=== PATIENT | male | born 1995 | race Caucasian/White ===

== ENCOUNTER 2017-07-17 12:34 | Inpatient (IN) | payer OTHER ==
[2017-07-17 13:22] LABS: ADD MAN DIFF? NO
[2017-07-17 13:24] LABS: BASOPHIL # 0.1 10^3/ul (0.0-0.1); BASOPHILS % 0.4 % (0.0-2.0); EOSINOPHILS % 0.2 % (0.0-7.0); HEMATOCRIT 43.8 % (42.0-52.0); HEMOGLOBIN 15.9 g/dl (14.0-18.0); LYMPHOCYTES # 2.3 10^3/ul (0.8-2.9); LYMPHOCYTES % 20.1 % (18.0-55.0); MEAN CORPUSCULAR HEMOGLOBIN 28.1 pg (29.0-33.0); MEAN CORPUSCULAR HGB CONC 36.3 g/dl (32.0-37.0); MEAN CORPUSCULAR VOLUME 77.5 fl (72.0-104.0); MEAN PLATELET VOLUME 10.9 fl (7.4-10.4); MONOCYTE # 0.5 10^3/ul (0.3-0.9); MONOCYTES % 4.6 % (0.0-13.0); NEUTROPHIL # 8.6 10^3/ul (1.6-7.5); NEUTROPHILS % 74.4 % (30.0-74.0); PLATELET COUNT 312 10^3/UL (140-415); RED BLOOD COUNT 5.65 10^6/ul (4.70-6.10); RED CELL DISTRIBUTION WIDTH 11.3 % (11.5-14.5)
[2017-07-17 13:24] LABS: WHITE BLOOD COUNT 11.5 10^3/ul (4.8-10.8)
[2017-07-17] MEDS: SOD CHLORIDE 0.9% 1,000 ML IV ×3 (13:27→14:14)
[2017-07-17] MEDS: ONDANSETRON 4 MG INJ IV (13:27)
[2017-07-17 13:41] LABS: ALANINE AMINOTRANSFERASE 46 IU/L (13-69); ALBUMIN 4.9 g/dl (3.3-4.9); ALBUMIN/GLOBULIN RATIO 1.44; ALKALINE PHOSPHATASE 158 IU/L (42-121); ANION GAP 32 (8-16); ASPARTATE AMINO TRANSFERASE 20 IU/L (15-46); BILIRUBIN,INDIRECT 0.4 mg/dl (0-1.1); BILIRUBIN,TOTAL 0.4 mg/dl (0.2-1.3); BLOOD UREA NITROGEN 14 mg/dl (7-20); CALCIUM 9.6 mg/dl (8.4-10.2); CARBON DIOXIDE 14 mmol/L (21-31); CHLORIDE 95 mmol/L (97-110); CREATININE 0.99 mg/dl (0.61-1.24); LIPASE 59 U/L (23-300); POTASSIUM 4.9 mmol/L (3.5-5.1); SODIUM 136 mmol/L (135-144); TOTAL PROTEIN 8.3 g/dl (6.1-8.1)
[2017-07-17 13:49] LABS: ADD UMIC NO; GLUCOSE 714 mg/dl (70-220); UR ASCORBIC ACID NEGATIVE (NEGATIVE); UR BILIRUBIN (Dip) NEGATIVE (NEGATIVE); UR BLOOD (Dip) NEGATIVE (NEGATIVE); UR CLARITY CLEAR (CLEAR); UR COLOR COLORLESS (YELLOW); UR GLUCOSE (Dip) 3+ mg/dL (NEGATIVE); UR KETONES (Dip) 2+ mg/dL (NEGATIVE); UR LEUKOCYTE ESTERASE (Dip) NEGATIVE Leu/ul (NEGATIVE); UR NITRITE (Dip) NEGATIVE (NEGATIVE); UR SPECIFIC GRAVITY (Dip) 1.028 (1.003-1.030); UR TOTAL PROTEIN (Dip) NEGATIVE (NEGATIVE); UR UROBILINOGEN (Dip) NEGATIVE (NEGATIVE)
[2017-07-17] MEDS ORDERED: GLUCOSE GEL 15 GRAM TUBE BUCCAL (14:00)
[2017-07-17] MEDS ORDERED: GLUCOSE GEL 15 GRAM TUBE PO ×2 (14:00)
[2017-07-17] MEDS ORDERED: GLUCAGON 1 MG INJ IM (14:00)
[2017-07-17] MEDS ORDERED: DEXTROSE 50% 50 ML SYRINGE IV ×4 (14:00→14:30)
[2017-07-17] MEDS ORDERED: SOD CHLORIDE 0.9% 1,000 ML IV (14:10)
[2017-07-17 14:17] LABS: MAGNESIUM 1.7 mg/dl (1.7-2.5)
[2017-07-17] MEDS: ACCU-CHEK XX ×10 (14:30→23:30)
[2017-07-17] MEDS ORDERED: POTASSIUM CHLORIDE 10 MEQ in SOD CHLORIDE 0.45% 1,000 ML IV (14:30)
[2017-07-17] MEDS ORDERED: POTASSIUM CHLORIDE 30 MEQ in SOD CHLORIDE 0.45% 1,000 ML IV (14:33)
[2017-07-17] MEDS: INSULIN HUMAN REGULAR 100 UNIT in SOD CHLORIDE 0.9% 99 ML IV (14:50)
[2017-07-17 15:28] LABS: ANION GAP 27 (8-16); BLOOD UREA NITROGEN 13 mg/dl (7-20); CALCIUM 8.6 mg/dl (8.4-10.2); CARBON DIOXIDE 15 mmol/L (21-31); CHLORIDE 102 mmol/L (97-110); CREATININE 0.82 mg/dl (0.61-1.24); POTASSIUM 4.5 mmol/L (3.5-5.1); SODIUM 139 mmol/L (135-144)
[2017-07-17 15:31] LABS: GLUCOSE 552 mg/dl (70-220)
[2017-07-17 15:33] LABS: HEMOGLOBIN A1C 8.1 % (0-5.9)
[2017-07-17 15:34] LABS: MODE ROOM AIR; MetHgb Venous 0.4 %; Sample Type Blood venous; Site VENOUS LINE; Venous COHb 0.4 %; Venous Fraction OxyHgb 72.9 %; Venous Oxygen Sat 73.5 mmHG (55.0-75.0); Venous Total Hemglobin 15.3 g/dl
[2017-07-17] MEDS ORDERED: ONDANSETRON 4 MG INJ IV (16:00)
[2017-07-17] MEDS ORDERED: MAGNESIUM HYDROXIDE 30ML CUP PO (16:00)
[2017-07-17] MEDS ORDERED: HYDROCODONE/APAP (5/325) TAB PO (16:00)
[2017-07-17] MEDS ORDERED: BISACODYL (EC) 5 MG TAB PO (16:00)
[2017-07-17] MEDS ORDERED: METOCLOPRAMIDE 10 MG INJ IV (16:00)
[2017-07-17] MEDS ORDERED: ONDANSETRON 4 MG TAB PO (16:00)
[2017-07-17] MEDS ORDERED: DOCUSATE SODIUM 100 MG CAP PO (16:00)
[2017-07-17] MEDS ORDERED: IBUPROFEN 600 MG TAB PO (16:00)
[2017-07-17] MEDS ORDERED: ACETAMINOPHEN 325 MG TAB PO (16:00)
[2017-07-17] MEDS: LACTATED RINGER'S 1,000 ML IV (17:47)
[2017-07-17 18:18] LABS: ANION GAP 23 (8-16); BLOOD UREA NITROGEN 11 mg/dl (7-20); CALCIUM 8.9 mg/dl (8.4-10.2); CARBON DIOXIDE 16 mmol/L (21-31); CHLORIDE 111 mmol/L (97-110); CREATININE 0.76 mg/dl (0.61-1.24); GLUCOSE 225 mg/dl (70-220); POTASSIUM 3.8 mmol/L (3.5-5.1); SODIUM 146 mmol/L (135-144)
[2017-07-17] MEDS: POTASSIUM CHLORIDE 10 MEQ in SOD CHLORIDE 0.45% 1,000 ML IV (20:01)
[2017-07-17] MEDS ORDERED: DEXTROSE 5%-0.45% NACL 1,000 ML IV (20:30)
[2017-07-17] MEDS: D5W-0.45 NACL + KCL 30 MEQ 1,000 ML IV (21:19)
[2017-07-17 23:10] LABS: ANION GAP 19 (8-16); BLOOD UREA NITROGEN 11 mg/dl (7-20); CALCIUM 8.5 mg/dl (8.4-10.2); CARBON DIOXIDE 18 mmol/L (21-31); CHLORIDE 107 mmol/L (97-110); CREATININE 0.76 mg/dl (0.61-1.24); GLUCOSE 267 mg/dl (70-220); SODIUM 140 mmol/L (135-144)
[2017-07-18] MEDS: ACCU-CHEK XX ×15 (00:30→14:41)
[2017-07-18] MEDS: INSULIN HUMAN REGULAR 100 UNIT in SOD CHLORIDE 0.9% 99 ML IV ×6 (02:28→14:52)
[2017-07-18 03:08] LABS: ANION GAP 18 (8-16); BLOOD UREA NITROGEN 11 mg/dl (7-20); CALCIUM 8.8 mg/dl (8.4-10.2); CARBON DIOXIDE 19 mmol/L (21-31); CHLORIDE 111 mmol/L (97-110); CREATININE 0.72 mg/dl (0.61-1.24); GLUCOSE 170 mg/dl (70-220); POTASSIUM 3.6 mmol/L (3.5-5.1); SODIUM 144 mmol/L (135-144)
[2017-07-18] MEDS: D5W-0.45 NACL + KCL 30 MEQ 1,000 ML IV ×3 (03:40→13:00)
[2017-07-18 06:34] LABS: PHOSPHORUS 2.6 mg/dl (2.5-4.9)
[2017-07-18 06:36] LABS: ANION GAP 18 (8-16); BLOOD UREA NITROGEN 11 mg/dl (7-20); CALCIUM 8.8 mg/dl (8.4-10.2); CARBON DIOXIDE 22 mmol/L (21-31); CHLORIDE 109 mmol/L (97-110); CREATININE 0.75 mg/dl (0.61-1.24); GLUCOSE 166 mg/dl (70-220); POTASSIUM 3.5 mmol/L (3.5-5.1); SODIUM 145 mmol/L (135-144)
[2017-07-18] MEDS ORDERED: PROPOFOL 100 ML (08:55)
[2017-07-18] MEDS: ENOXAPARIN 40 MG/0.4 ML SYG SC (09:43)
[2017-07-18 11:51] LABS: ANION GAP 16 (8-16); BLOOD UREA NITROGEN 10 mg/dl (7-20); CALCIUM 8.8 mg/dl (8.4-10.2); CARBON DIOXIDE 22 mmol/L (21-31); CHLORIDE 110 mmol/L (97-110); CREATININE 0.65 mg/dl (0.61-1.24); GLUCOSE 114 mg/dl (70-220); POTASSIUM 3.5 mmol/L (3.5-5.1); SODIUM 144 mmol/L (135-144)
[2017-07-18] MEDS ORDERED: DEXTROSE 50% 50 ML SYRINGE IV ×2 (12:30)
[2017-07-18] MEDS ORDERED: GLUCOSE GEL 15 GRAM TUBE PO ×2 (12:30)
[2017-07-18] MEDS ORDERED: GLUCAGON 1 MG INJ IM (12:30)
[2017-07-18] MEDS ORDERED: GLUCOSE GEL 15 GRAM TUBE BUCCAL (12:30)
[2017-07-18 14:22] LABS: CREATININE, RANDOM URINE 26 mg/dL (20-370); MICROALBUMIN/CREATININE RATIO 115 (<30)
[2017-07-18] MEDS: INSULIN GLARGINE [LANtus] 3 ML PEN SC (14:51)
[2017-07-18 15:30] LABS: ANION GAP 19 (8-16); BLOOD UREA NITROGEN 8 mg/dl (7-20); CARBON DIOXIDE 22 mmol/L (21-31); CHLORIDE 107 mmol/L (97-110); CREATININE 0.65 mg/dl (0.61-1.24); GLUCOSE 132 mg/dl (70-220); POTASSIUM 3.8 mmol/L (3.5-5.1); SODIUM 144 mmol/L (135-144)
[2017-07-18 15:51] LABS: C-PEPTIDE 1.45 ng/mL (0.80-3.85)
[2017-07-18] MEDS: INSULIN ASPART [NOVOLOG] 3 ML PEN SC ×4 (17:35→21:24)
[2017-07-19] MEDS: ACCU-CHEK XX (02:06)
[2017-07-19 07:37] LABS: ANION GAP 21 (8-16); BLOOD UREA NITROGEN 10 mg/dl (7-20); CALCIUM 9.1 mg/dl (8.4-10.2); CARBON DIOXIDE 20 mmol/L (21-31); CHLORIDE 104 mmol/L (97-110); CREATININE 0.69 mg/dl (0.61-1.24); GLUCOSE 284 mg/dl (70-220); MAGNESIUM 1.6 mg/dl (1.7-2.5); PHOSPHORUS 3.4 mg/dl (2.5-4.9); POTASSIUM 3.9 mmol/L (3.5-5.1); SODIUM 141 mmol/L (135-144)
[2017-07-19] MEDS: INSULIN GLARGINE [LANtus] 3 ML PEN SC (08:10)
[2017-07-19] MEDS: INSULIN ASPART [NOVOLOG] 3 ML PEN SC ×6 (08:10→17:23)
[2017-07-19] MEDS: ENOXAPARIN 40 MG/0.4 ML SYG SC (08:12)
[2017-07-19] MEDS: MAGNESIUM SULFATE 2 GM/50 ML 50 ML IVPB (10:46)
[2017-07-21 15:17] LABS: INSULIN AUTOANTIBODY <0.4 U/mL (<0.4)
== END 2017-07-19 18:00 | disposition home or self-care (01) | DRG 638 ==
LOC: ICU 14:09 → E/R 12:34 → MS2 07-18 22:20
PROVIDERS: Internal Medicine
DX: E11.10 Type 2 diabetes mellitus with ketoacidosis without coma (principal); Z68.42 Body mass index [BMI] 45.0-49.9, adult; E66.01 Morbid (severe) obesity due to excess calories; Z71.3 Dietary counseling and surveillance; Z79.4 Long term (current) use of insulin; E86.0 Dehydration
CPT/HCPCS: 36415; 80048; 80053; 81003; 82043; 82803; 82962; 83036; 83690; 83735; 84100; 84681; 85025; 86337; 87081; 96374; 96375; 99291-25

== ENCOUNTER 2017-09-22 20:38 | Inpatient (IN) | payer OTHER ==
[2017-09-22 21:41] LABS: ADD MAN DIFF? NO
[2017-09-22 21:44] LABS: WHITE BLOOD COUNT 13.5 10^3/ul (4.8-10.8)
[2017-09-22 21:44] LABS: BASOPHILS % 0.3 % (0.0-2.0); HEMATOCRIT 50.2 % (42.0-52.0); HEMOGLOBIN 17.9 g/dl (14.0-18.0); LYMPHOCYTES # 1.7 10^3/ul (0.8-2.9); LYMPHOCYTES % 12.6 % (18.0-55.0); MEAN CORPUSCULAR HGB CONC 35.7 g/dl (32.0-37.0); MEAN CORPUSCULAR VOLUME 81.2 fl (72.0-104.0); MEAN PLATELET VOLUME 11.2 fl (7.4-10.4); MONOCYTE # 0.7 10^3/ul (0.3-0.9); MONOCYTES % 5.3 % (0.0-13.0); NEUTROPHILS % 81.4 % (30.0-74.0); PLATELET COUNT 404 10^3/UL (140-415); RED BLOOD COUNT 6.18 10^6/ul (4.70-6.10)
[2017-09-22] MEDS: SOD CHLORIDE 0.9% 2,000 ML IV (21:44)
[2017-09-22 22:04] LABS: ANION GAP 39 (8-16); BLOOD UREA NITROGEN 10 mg/dl (7-20); CALCIUM 9.6 mg/dl (8.4-10.2); CHLORIDE 98 mmol/L (97-110); CREATININE 1.17 mg/dl (0.61-1.24); LIPASE 45 U/L (23-300); MAGNESIUM 1.9 mg/dl (1.7-2.5); PHOSPHORUS 4.6 mg/dl (2.5-4.9); POTASSIUM 4.2 mmol/L (3.5-5.1); SODIUM 140 mmol/L (135-144)
[2017-09-22 22:07] LABS: ADD UMIC YES; UR ASCORBIC ACID NEGATIVE (NEGATIVE); UR BILIRUBIN (Dip) NEGATIVE (NEGATIVE); UR BLOOD (Dip) 2+ mg/dL (NEGATIVE); UR CLARITY CLEAR (CLEAR); UR COLOR STRAW (YELLOW); UR GLUCOSE (Dip) 3+ mg/dL (NEGATIVE); UR KETONES (Dip) 2+ mg/dL (NEGATIVE); UR LEUKOCYTE ESTERASE (Dip) NEGATIVE Leu/ul (NEGATIVE); UR MUCUS FEW /HPF (NONE SEEN); UR NITRITE (Dip) NEGATIVE (NEGATIVE); UR RBC 0 /HPF (0-5); UR TOTAL PROTEIN (Dip) 2+ mg/dl (NEGATIVE); UR UROBILINOGEN (Dip) NEGATIVE (NEGATIVE); UR WBC 0 /HPF (0-5)
[2017-09-22 22:10] LABS: CARBON DIOXIDE 7 mmol/L (21-31); GLUCOSE 555 mg/dl (70-220)
[2017-09-22] MEDS: SOD CHLORIDE 0.9% 1,000 ML IV ×2 (23:17→23:40)
[2017-09-22] MEDS: INSULIN HUMAN REGULAR 100 UNIT in SOD CHLORIDE 0.9% 99 ML IV (23:19)
[2017-09-22] MEDS ORDERED: ALBUTEROL/IPRATROPIUM (NEB) 3 ML AMP NEB (23:30)
[2017-09-22] MEDS ORDERED: morphine 2 MG INJ IV (23:30)
[2017-09-22] MEDS: ACCU-CHEK XX (23:30)
[2017-09-22] MEDS ORDERED: DEXTROSE 50% 50 ML SYRINGE IV ×2 (23:30)
[2017-09-22] MEDS: LACTATED RINGER'S 1,000 ML IV (23:40)
[2017-09-23] MEDS: ACCU-CHEK XX ×18 (00:30→17:29)
[2017-09-23] MEDS: POTASSIUM CHLORIDE 20 MEQ in SOD CHLORIDE 0.9% 1,000 ML IV (01:51)
[2017-09-23] MEDS: DEXTROSE 5%-0.45% NACL 1,000 ML IV ×2 (02:02→08:28)
[2017-09-23 02:41] LABS: MODE ROOM AIR; MetHgb Venous 0.4 %; Sample Type Blood venous; Site VENOUS LINE; Venous COHb 0.4 %; Venous Fraction OxyHgb 72.8 %; Venous Oxygen Sat 73.4 mmHG (55.0-75.0)
[2017-09-23] MEDS: ONDANSETRON 4 MG INJ IV (02:53)
[2017-09-23 05:12] LABS: ADD MAN DIFF? NO
[2017-09-23 05:13] LABS: WHITE BLOOD COUNT 12.4 10^3/ul (4.8-10.8)
[2017-09-23 05:13] LABS: BASOPHILS % 0.2 % (0.0-2.0); EOSINOPHILS % 0.1 % (0.0-7.0); HEMATOCRIT 40.9 % (42.0-52.0); HEMOGLOBIN 14.4 g/dl (14.0-18.0); LYMPHOCYTES # 2.5 10^3/ul (0.8-2.9); LYMPHOCYTES % 20.4 % (18.0-55.0); MEAN CORPUSCULAR HEMOGLOBIN 28.9 pg (29.0-33.0); MEAN CORPUSCULAR HGB CONC 35.2 g/dl (32.0-37.0); MEAN PLATELET VOLUME 10.7 fl (7.4-10.4); MONOCYTE # 0.9 10^3/ul (0.3-0.9); MONOCYTES % 7.5 % (0.0-13.0); NEUTROPHIL # 8.8 10^3/ul (1.6-7.5); NEUTROPHILS % 71.4 % (30.0-74.0); PLATELET COUNT 302 10^3/UL (140-415); RED BLOOD COUNT 4.99 10^6/ul (4.70-6.10); RED CELL DISTRIBUTION WIDTH 12.9 % (11.5-14.5)
[2017-09-23 05:37] LABS: ALANINE AMINOTRANSFERASE 35 IU/L (13-69); ALBUMIN 4.2 g/dl (3.3-4.9); ALBUMIN/GLOBULIN RATIO 1.55; ALKALINE PHOSPHATASE 94 IU/L (42-121); ANION GAP 23 (8-16); ASPARTATE AMINO TRANSFERASE 19 IU/L (15-46); BILIRUBIN,INDIRECT 0.4 mg/dl (0-1.1); BILIRUBIN,TOTAL 0.4 mg/dl (0.2-1.3); BLOOD UREA NITROGEN 8 mg/dl (7-20); CALCIUM 8.5 mg/dl (8.4-10.2); CARBON DIOXIDE 15 mmol/L (21-31); CHLORIDE 112 mmol/L (97-110); CHOL/HDL RATIO 6.3 RATIO; CHOLESTEROL 196 mg/dl (100-200); CREATININE 0.71 mg/dl (0.61-1.24); GLUCOSE 177 mg/dl (70-220); HDL CHOLESTEROL 31 mg/dl (30-63); LDL CHOLESTEROL,CALCULATED 124 mg/dl; POTASSIUM 3.8 mmol/L (3.5-5.1); SODIUM 146 mmol/L (135-144); TOTAL PROTEIN 6.9 g/dl (6.1-8.1); TRIGLYCERIDES 205 mg/dl (0-149)
[2017-09-23] MEDS: INSULIN HUMAN REGULAR 100 UNIT in SOD CHLORIDE 0.9% 99 ML IV (08:22)
[2017-09-23] MEDS: FAMOTIDINE 20 MG INJ IV ×2 (08:28→20:47)
[2017-09-23 12:33] LABS: ANION GAP 14 (8-16); BLOOD UREA NITROGEN 8 mg/dl (7-20); CALCIUM 8.6 mg/dl (8.4-10.2); CARBON DIOXIDE 17 mmol/L (21-31); CHLORIDE 115 mmol/L (97-110); CREATININE 0.66 mg/dl (0.61-1.24); GLUCOSE 130 mg/dl (70-220); POTASSIUM 3.1 mmol/L (3.5-5.1); SODIUM 143 mmol/L (135-144)
[2017-09-23] MEDS: POTASSIUM PHOSPHATE 20 MEQ in SOD CHLORIDE 0.9% 250 ML IVPB (13:15)
[2017-09-23] MEDS ORDERED: morphine LIQ (10 MG/5 ML) CUP PO (14:24)
[2017-09-23] MEDS ORDERED: GLUCAGON 1 MG INJ IM (14:30)
[2017-09-23] MEDS ORDERED: GLUCOSE GEL 15 GRAM TUBE BUCCAL (14:30)
[2017-09-23] MEDS ORDERED: DEXTROSE 50% 50 ML SYRINGE IV ×2 (14:30)
[2017-09-23] MEDS ORDERED: GLUCOSE GEL 15 GRAM TUBE PO ×2 (14:30)
[2017-09-23] MEDS: INSULIN GLARGINE [LANtus] 3 ML PEN SC ×2 (15:00→15:39)
[2017-09-23] MEDS: POTASSIUM CHLORIDE 50 ML IVPB ×2 (15:32→17:30)
[2017-09-23] MEDS: SOD CHLORIDE 0.9% 1,000 ML IV (17:00)
[2017-09-23] MEDS: INSULIN ASPART [NOVOLOG] 3 ML PEN SC ×3 (17:29→20:50)
[2017-09-23] MEDS ORDERED: INSULIN GLARGINE [LANtus] 3 ML PEN SC (20:00)
[2017-09-24] MEDS: SOD CHLORIDE 0.9% 1,000 ML IV ×2 (00:09→09:56)
[2017-09-24] MEDS: ACCU-CHEK XX (02:49)
[2017-09-24 05:37] LABS: ADD MAN DIFF? NO
[2017-09-24 05:39] LABS: WHITE BLOOD COUNT 7.3 10^3/ul (4.8-10.8)
[2017-09-24 05:39] LABS: BASOPHILS % 0.6 % (0.0-2.0); EOSINOPHILS # 0.2 10^3/ul (0.0-0.5); EOSINOPHILS % 3.2 % (0.0-7.0); HEMATOCRIT 37.2 % (42.0-52.0); HEMOGLOBIN 13.2 g/dl (14.0-18.0); LYMPHOCYTES # 2.7 10^3/ul (0.8-2.9); LYMPHOCYTES % 37.3 % (18.0-55.0); MEAN CORPUSCULAR HEMOGLOBIN 28.4 pg (29.0-33.0); MEAN CORPUSCULAR HGB CONC 35.5 g/dl (32.0-37.0); MEAN CORPUSCULAR VOLUME 80.2 fl (72.0-104.0); MEAN PLATELET VOLUME 10.9 fl (7.4-10.4); MONOCYTE # 0.5 10^3/ul (0.3-0.9); NEUTROPHIL # 3.8 10^3/ul (1.6-7.5); NEUTROPHILS % 51.6 % (30.0-74.0); PLATELET COUNT 248 10^3/UL (140-415); RED BLOOD COUNT 4.64 10^6/ul (4.70-6.10); RED CELL DISTRIBUTION WIDTH 12.6 % (11.5-14.5)
[2017-09-24 06:08] LABS: ANION GAP 17 (8-16); BLOOD UREA NITROGEN 4 mg/dl (7-20); CALCIUM 8.4 mg/dl (8.4-10.2); CARBON DIOXIDE 21 mmol/L (21-31); CHLORIDE 105 mmol/L (97-110); CREATININE 0.64 mg/dl (0.61-1.24); GLUCOSE 237 mg/dl (70-220); MAGNESIUM 1.7 mg/dl (1.7-2.5); PHOSPHORUS 1.5 mg/dl (2.5-4.9); SODIUM 140 mmol/L (135-144)
[2017-09-24] MEDS: INSULIN ASPART [NOVOLOG] 3 ML PEN SC ×7 (08:30→21:21)
[2017-09-24] MEDS: FAMOTIDINE 20 MG INJ IV ×2 (09:44→21:16)
[2017-09-24 17:16] LABS: CREATININE, RANDOM URINE 49 mg/dL (20-370); MICROALBUMIN 33.1 mg/dL; MICROALBUMIN/CREATININE RATIO 676 (<30)
[2017-09-24] MEDS: POTASSIUM CHLORIDE (SR) 20 MEQ TAB PO (17:22)
[2017-09-24] MEDS: MAGNESIUM OXIDE 400 MG TAB PO (17:23)
[2017-09-24] MEDS: INSULIN GLARGINE [LANtus] 3 ML PEN SC (21:22)
[2017-09-25] MEDS: ACCU-CHEK XX (02:15)
[2017-09-25 05:35] LABS: PHOSPHORUS 3.2 mg/dl (2.5-4.9)
[2017-09-25 05:35] LABS: MAGNESIUM 1.7 mg/dl (1.7-2.5)
[2017-09-25 06:12] LABS: BLOOD UREA NITROGEN 5 mg/dl (7-20); CALCIUM 8.9 mg/dl (8.4-10.2); CARBON DIOXIDE 25 mmol/L (21-31); CHLORIDE 103 mmol/L (97-110); CREATININE 0.57 mg/dl (0.61-1.24); GLUCOSE 224 mg/dl (70-220); SODIUM 142 mmol/L (135-144)
[2017-09-25 06:28] LABS: ANION GAP 17 (8-16)
[2017-09-25 06:30] LABS: POTASSIUM 2.9 mmol/L (3.5-5.1)
[2017-09-25] MEDS: POTASSIUM CHLORIDE (SR) 20 MEQ TAB PO ×3 (06:59→17:14)
[2017-09-25] MEDS ORDERED: POTASSIUM CHLORIDE (SR) 20 MEQ TAB PO (07:52)
[2017-09-25 08:07] LABS: ADD MAN DIFF? NO
[2017-09-25 08:12] LABS: BASOPHILS % 0.7 % (0.0-2.0); EOSINOPHILS # 0.1 10^3/ul (0.0-0.5); EOSINOPHILS % 1.7 % (0.0-7.0); HEMATOCRIT 39.3 % (42.0-52.0); LYMPHOCYTES # 2.8 10^3/ul (0.8-2.9); LYMPHOCYTES % 48.3 % (18.0-55.0); MEAN CORPUSCULAR HEMOGLOBIN 28.3 pg (29.0-33.0); MEAN CORPUSCULAR HGB CONC 35.6 g/dl (32.0-37.0); MEAN CORPUSCULAR VOLUME 79.4 fl (72.0-104.0); MEAN PLATELET VOLUME 11.2 fl (7.4-10.4); MONOCYTE # 0.4 10^3/ul (0.3-0.9); MONOCYTES % 7.7 % (0.0-13.0); NEUTROPHIL # 2.4 10^3/ul (1.6-7.5); NEUTROPHILS % 41.4 % (30.0-74.0); PLATELET COUNT 247 10^3/UL (140-415); RED BLOOD COUNT 4.95 10^6/ul (4.70-6.10); RED CELL DISTRIBUTION WIDTH 12.9 % (11.5-14.5)
[2017-09-25 08:12] LABS: WHITE BLOOD COUNT 5.7 10^3/ul (4.8-10.8)
[2017-09-25 08:17] LABS: MAGNESIUM 1.8 mg/dl (1.7-2.5)
[2017-09-25] MEDS: INSULIN ASPART [NOVOLOG] 3 ML PEN SC ×6 (08:44→17:26)
[2017-09-25 16:29] LABS: ANION GAP 16 (8-16); BLOOD UREA NITROGEN 10 mg/dl (7-20); CALCIUM 8.9 mg/dl (8.4-10.2); CARBON DIOXIDE 31 mmol/L (21-31); CHLORIDE 96 mmol/L (97-110); CREATININE 0.64 mg/dl (0.61-1.24); GLUCOSE 234 mg/dl (70-220); POTASSIUM 3.3 mmol/L (3.5-5.1); SODIUM 140 mmol/L (135-144)
[2017-09-25] MEDS ORDERED: INSULIN GLARGINE [LANtus] 3 ML PEN SC (20:00)
== END 2017-09-25 18:40 | disposition home or self-care (01) | DRG 638 ==
LOC: E/R 20:38 → ICU 23:21 → MS1 09-23 22:50
DX: E11.10 Type 2 diabetes mellitus with ketoacidosis without coma (principal); E87.2 Acidosis; Z79.4 Long term (current) use of insulin
CPT/HCPCS: 36415; 74018; 80048; 80053; 80061; 81001; 82043; 82803; 82962; 83036; 83690; 83735; 84100; 85025; 87081; 96361; 96374; 96375; 99291-25